=== PATIENT | male | born 1960 | race Caucasian/White ===

== ENCOUNTER 2016-12-16 16:23 | Emergency (ER) | payer OTHER ==
[2016-12-16 16:32] VITALS: RESP 16; O2SAT 99
[2016-12-16] MEDS ORDERED: FAMOTIDINE 20 MG TAB PO ONE (17:03)
[2016-12-16] MEDS ORDERED: LORazepam 1 MG TAB PO ONE (17:03)
[2016-12-16] MEDS ORDERED: predniSONE 20 MG TAB PO ONE (17:03)
[2016-12-16] MEDS ORDERED: diphenhydrAMINE 25 MG CAP PO ONE (17:03)
--- NOTE | 2016-12-16 17:11 | EDPHY ---
H & P Stated Complaint: Ate omelette (pt made) about 90 mins ago;lips feel numb x 30 mins Time Seen by Provider: 12/16/16 16:29 HPI/ROS: CHIEF COMPLAINT: allergic reaction HISTORY OF PRESENT ILLNESS: 56-year-old male presents emergency department reporting he is feeling an allergic reaction. Patient made a omelet with green peppers and chicken 90 minutes prior to arrival. He reports 30 minutes after eating this he started having mild ringing in his ears, feeling lightheaded, numbness to his lips and feeling nasal and throat congestion. Patient has allergies to multiple foods and sees an volunteer firefighter. He takes Zyrtec and Nasacort daily. Last allergic reaction was 1.5 years ago after eating sushi where he felt his throat was closing and he used his daughters epi pen, was seen in an ER and treated with other allergic reactions medications that were helpful. Pt denies difficulty breathing or swallowing, denies tongue swelling. No CP or SOB. REVIEW OF SYSTEMS: A comprehensive 10 point review of systems is otherwise negative aside from elements mentioned in the history of present illness. Source: Patient Exam Limitations: No limitations - Personal History Current Tetanus Diphtheria and Acellular Pertussis (TDAP): Yes - Medical/Surgical History Hx Asthma: Yes Hx Chronic Respiratory Disease: No Hx Diabetes: No Hx Cardiac Disease: No Hx Renal Disease: No Hx Cirrhosis: No Hx Alcoholism: No Hx HIV/AIDS: No Hx Splenectomy or Spleen Trauma: No Other PMH: tinnitus - Social History Smoking Status: Never smoked - Physical Exam Exam: Physical Exam General: Alert, nontoxic ENT: Tympanic membranes clear, external auditory canal, external ear and surrounding soft tissue including over the mastoid unremarkable. Nasopharynx is not injected, there is no rhinorrhea. Oropharynx without erythema or edema. There is no exudate. No tonsillar hypertrophy. No asymmetry. The uvula is midline. No elevation of tongue. There is no hoarseness. No drooling, patient has good control of their oral secretions. No trismus. No stridor. Cardiac: Regular rate and rhythm. Respiratory: Lungs clear to auscultation bilaterally. Neurological: no meningismus. Skin: No rashes. NECK:No neuro deficits, no meningismus Constitutional: Initial Vital Signs Temperature (C) 36.5 C 12/16/16 16:25 Heart Rate 102 H 12/16/16 16:25 Respiratory Rate 16 05/17/17 16:25 Blood Pressure 142/95 H 12/16/16 16:25 O2 Sat (%) 99 12/16/16 16:25 O2 Delivery Mode Room Air Allergies/Adverse Reactions: Milk Containing Products [dairy] Allergy (Verified 06/30/15 18:16) soy Allergy (Verified 06/30/15 18:16) wheat Allergy (Verified 06/30/15 18:16) Home Medications: Medication Instructions Recorded Aspirin 06/30/15 ZYRTEC 06/30/15 traMADOL 06/30/15 EPINEPHRINE [EPIPEN] 0.3 mg IM ONCE 12/16/16 EPINEPHRINE [EPIPEN] 0.3 mg IM ONCE #2 syr 12/16/16 Famotidine [Pepcid 20 MG (*)] 20 mg PO DAILY 3 Days 12/16/16 predniSONE 40 mg PO DAILY #6 tab 12/16/16 Medical Decision Making ED Course/Re-evaluation: 56-year-old male presents subjective symptoms of an allergic reaction with tingling of his lips throat nasal congestion, dizziness after eating an omelet today. This feels similar, though not nearly as bad, to a previous allergic reaction after eating sushi year and half ago when he gave himself an epinephrine injection. Patient was given 60 mg of prednisone, 50 mg of Benadryl, 40 mg of Pepcid and 1 mg of Ativan. He was observed in the emergency department for 2 hours and reported symptoms significantly had improved. He is comfortable being discharged home and is given strict return precautions. Patient has no angioedema, tongue swelling, difficulty breathing or swallowing. He is discharged a 3 day course of prednisone and Pepcid. He is given prescription for epi pens. Differential Diagnosis: The differential diagnosis included but was not limited to angioedema, anaphylaxis, anaphylactoid reaction, urticarial reaction, and other infectious causes for skin rash. - Data Points Medications Given: Discontinued Medications Diphenhydramine HCl (Benadryl) 50 mg PO EDNOW ONE Stop: 12/16/16 17:04 Last Admin: 12/16/16 17:12 Dose: 50 mg Famotidine (Pepcid) 40 mg PO EDNOW ONE Stop: 12/16/16 17:04 Last Admin: 12/16/16 17:13 Dose: 40 mg Lorazepam (Ativan) 1 mg PO EDNOW ONE Stop: 12/16/16 17:04 Last Admin: 12/16/16 17:13 Dose: 1 mg Prednisone (Prednisone) 60 mg PO EDNOW ONE Stop: 12/16/16 17:04 Last Admin: 12/16/16 17:13 Dose: 60 mg Departure - Departure Disposition: Home, Routine, Self-Care Clinical Impression: Allergic reaction Qualifiers: Encounter type: initial encounter Qualified Code(s): T78.40XA - Allergy, unspecified, initial encounter Condition: Good Instructions: Food Allergy (ED), General Allergic Reaction (ED) Additional Instructions: There are 4 medications used to treat allergic reactions. #1. The first is epinephrine. Please use the epinephrine pen in the future as needed if the patient develops acute swelling, throat tightness, shortness of breath, or severe rash in the setting of allergic reaction. #2. The second type of medication are antihistamines. The most common antihistamine is diphenhydramine (Benadryl). Dose is 25-50 mg every 6-8 hours as needed for itching and rash. Diphenhydramine can be sedating. Another type of antihistamine is loratadine (Claritin). This is taken once a day. It is not sedating. Repeat doses of antihistamines may be needed as the hives will come and go over the next several days. You may notice that the hives are worse after exposure to heat, warm showers, or exertion. #3. The third medication is Pepcid which is another type of an antihistamine. Dose is 20 mg once a day for 3 days. This should be taken on a regular basis. #4. The fourth medication is prednisone, which is a steroid. The dose is 40 mg a day x3 doses. Please take this as instructed. #5. Return to emergency department or seek care urgently if severe shortness of breath develops, swelling of the lips, eyelids, or sensation that the throat is closing. Please follow up with your primary care physician as needed. Referrals: Arianna Spencer MD [[facility] [place] Primary Care Provider] - As per Instructions Prescriptions: EPINEPHRINE [EPIPEN] 0.3 mg IM ONCE #2 syr Famotidine [Pepcid 20 MG (*)] 20 mg PO DAILY 3 Days predniSONE 40 mg PO DAILY #6 tab
[2016-12-16 18:23] VITALS: BP 122/81; PULSE 89; TEMP 97.5
== END 2016-12-16 18:23 | disposition home or self-care (01) ==
DX: T78.1XXA Other adverse food reactions, not elsewhere classified, initial encounter (principal); J45.909 Unspecified asthma, uncomplicated; Z79.82 Long term (current) use of aspirin; Z91.018 Allergy to other foods

== ENCOUNTER → 2017-01-18 | Outpatient (CLI) | payer OTHER | LOC: BMCIMAGING 08:47 | PROVIDERS: ATTEND Internal Medicine | DX: R19.7 Diarrhea, unspecified (principal); R19.8 Other specified symptoms and signs involving the digestive system and abdomen; N28.1 Cyst of kidney, acquired ==